=== PATIENT | male | born 1955 | race Caucasian/White ===

== ENCOUNTER 2017-02-01 17:15 | Inpatient (IN) | payer OTHER ==
--- NOTE | ~2017-02-01 | HP ---
History And Physical [place] [id number] [facility] [place]. [address] NAME: JOSE CARLOS SAAVEDRA : 59 STATUS : ADM IN PAT#: [id number] AGE: 61 ADM/REG DATE : 02/01/17 MR#: [id number] REPORT SERV DATE: 02/02/17 DICTATED BY: LUKE ELLIOTT DATE: 02/01/17 REPORT STATUS : Draft TRANSCRIBED BY: MODL DATE: 02/01/17 DATE OF ADMISSION: 02/01/2017 CARDIOLOGY ADMISSION NOTE ADMISSION DIAGNOSIS: Atrial fibrillation with tachycardia. HISTORY OF PRESENT ILLNESS: Mr. Saavedra is a 61-year-old male, known to me from clinic and last seen in the outpatient setting in 2014, who presented to his local ER today with palpitations and was found to have atrial fibrillation with tachycardia. He is transferred here for further care. He has a known history of paroxysmal atrial fibrillation of many years. He was previously diagnosed by one of my partners and he was treated with rate control. He did have a cardioversion previously and was subsequently on anticoagulation, but apparently, there was some difficulties procuring long-term anticoagulation for him and he was transitioned to a full dose aspirin. When I saw him in 05/2015, he happened to be in atrial fibrillation despite being on diltiazem 480 mg and I added metoprolol to his regimen. I subsequently placed a Holter monitor on him which noted that with this combination he had reasonable rate control with average heart rate just above 100. It seems that there was some confusion about his prescription, and then shortly thereafter, he transitioned to metoprolol alone. I have not seen him in two years partially because of temporary contract negotiations with his insurance provider. However, over that time frame, he has felt generally very well with no palpitations. However, in the past two weeks, he has been feeling poorly and reports fatigue and shortness of breath. He experienced increased palpitations this morning and went to the ER where he was noted to be in atrial fibrillation with heart rate above 150. He was given diltiazem bolus and started on infusion, and after discussion with me, he was transferred for further care. PAST MEDICAL HISTORY: 1. Atrial fibrillation paroxysmal, currently not on oral anticoagulation, but managed with Toprol 50 mg daily. 2. History of hypertension. He has no history of stroke, no history of GI bleed, or any other major bleed. MEDICATIONS: Metoprolol and full-dose aspirin. Previously, on diltiazem. ALLERGIES: DENIES DRUG ALLERGIES. FAMILY HISTORY: Noncontributory. 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 He does not smoke, use alcohol or tobacco. REVIEW OF SYSTEMS: Per HPI. Otherwise, negative. History And Physical [address] [address] NAME: JOSE CARLOS SAAVEDRA : 59 STATUS : ADM IN [facility]#: [id number] AGE: 61 ADM/REG DATE : 02/01/17 MR#: [id number] REPORT SERV DATE: 02/02/17 DICTATED BY: LUKE ELLIOTT DATE: 02/01/17 REPORT STATUS : Draft TRANSCRIBED BY: CYNTHIA DATE: 02/01/17 PHYSICAL EXAMINATION: VITALS: Heart rate approximately 120 at the time my evaluation, his diltiazem drip is currently not running, blood pressure 160/90, respiratory rate 12. GENERAL: Appears comfortable. HEENT: Sclerae anicteric; mucous membranes moist. NECK: No JVD. Thyroid not tender or enlarged CARDIOVASCULAR: The patient is tachycardic and there is a regular rhythm. No murmurs are present. PULMONARY: Lung miranda CTA. ABDOMEN: Soft, nontender, no masses EXTREMITIES: Warm, no edema. NEUROLOGIC: Grossly without deficits. LABS: Available blood work, from the transferring facility, notable for WBC 12.4, hemoglobin 18.6, hematocrit 53.0, platelets 236. Sodium of 139, potassium 3.1, chloride 97, bicarb 29, BUN 14, creatinine 1.2, glucose 155, calcium 9.9, bilirubin of 1.8. AST 30, ALT 37, troponin 0.02. Total protein 7.9, albumin 4.1. STUDIES: Chest x-ray demonstrates cardiomegaly with mild pulmonary edema. No focal airspace disease. EKG demonstrates narrow complex tachycardia, consistent with atrial fibrillation. Ventricular rate of approximately 190. Currently in telemetry, he demonstrates heart rate in the 120 to 130 range. IMPRESSIONS/RECOMMENDATIONS: 1. Paroxysmal atrial fibrillation with tachycardic response. 2. History of hypertension. 3. Possible heart failure. Abnormal chest x-ray. The patient will be rate controlled with diltiazem infusion will transition back to oral regimen with diltiazem 90 q.6 hours and metoprolol 25 q.12 hours with further titration thus needed to achieve to wean him off the diltiazem infusion and to achieve adequate heart rate response. I feel that he would be better served by being on oral an anticoagulant as opposed to aspirin. Although his only traditional risk factor is hypertension. He is at low risk of a bleed and has demonstrated significant burden of atrial fibrillation. I believe the benefits outweigh the risks and I have discussed this with him. I have recommended Eliquis 5 mg q.12 hours and he is agreeable. We will start this now. I will consider cardioversion depending on his ability to achieve adequate heart rate control and based on his initial echocardiogram which we will check tomorrow. Further recommendations pending this clinical course. ISAAC/CYNTHIA History And Physical [address] [address] NAME: SAAVEDRAJOSE CARLOS : 59 STATUS : ADM IN PAT#: [id number] AGE: 61 ADM/REG DATE : 02/01/17 MR#: [id number] REPORT SERV DATE: 02/02/17 DICTATED BY: LUKE ELLIOTT DATE: 02/01/17 REPORT STATUS : Draft TRANSCRIBED BY: CYNTHIA DATE: 02/01/17 Luke Elliott MD / [id number] CC: Luke Elliott MD
[~2017-02-01 17:15] MED LIST: TYLENOL 8 HR650 MG PO; XARELTO20 MG PO
[2017-02-01] MEDS ORDERED: ASA5GR PO (18:03)
[2017-02-01] MEDS ORDERED: TOPXL100 PO (18:04)
[2017-02-01 19:29] LABS: BASOPHILS 0.3 %; BASOPHILS ABSOLUTE 0.03 10/3/uL (0.0-0.16); EOSINOPHILS 0.3 %; EOSINOPHILS ABSOLUTE 0.03 10/3/uL (0.0-0.53); HEMOGLOBIN 16.5 g/dL (13.6-17.8); IMMATURE GRANULOCYTES 0.2 %; IMMATURE GRANULOCYTES ABSOLUTE 0.02 10/3/uL (0.0-0.11); LYMPHOCYTES 19.7 %; LYMPHOCYTES ABSOLUTE 1.91 10/3/uL (0.67-4.30); MANUAL DIFF NO %; MEAN CORPUS HGB CONC 35.1 g/dL (32.0-36.0); MONOCYTES ABSOLUTE 0.68 10/3/uL (0.21-1.20); NEUTROPHILS 72.5 %; NEUTROPHILS ABSOLUTE 7.05 10/3/uL (2.02-8.40); PLATELET COUNT 194 10/3/uL (150-400); RBC DISTRIBUTION WIDTH 13.4 % (12.0-16.0); WHITE BLOOD CELLS 9.7 10/3/uL (4.5-10.5)
[2017-02-01 19:45] LABS: A/G RATIO 0.9 (0.7-1.9); ALBUMIN 3.1 G/DL (3.5-5.0); ALKALINE PHOSPHATASE 64 U/L (45-117); CALCIUM, SERUM 8.7 MG/DL (8.5-10.4); CHLORIDE, SERUM 101 MMOL/L (96-112); CO2 (CARBON DIOXIDE) 31 MMOL/L (24-34); CREATININE 1.06 MG/DL (0.70-1.30); GFR AFRICAN AMERICAN 89 ML/MIN (>=60); GFR NON AFRICAN AMERICAN 76 ML/MIN (>=60); GLOBULIN 3.6 G/DL (2.5-4.1); POTASSIUM, SERUM 3.3 MMOL/L (3.5-5.3); SGOT(AST) 21 U/L (5-40); SGPT(ALT) 27 U/L (5-65); SODIUM, SERUM 142 MMOL/L (135-148); TOTAL PROTEIN 6.7 G/DL (6.0-8.5)
[2017-02-01 19:46] LABS: BUN (BLOOD UREA NITROGEN) 15 MG/DL (6-23); GLUCOSE, SERUM 139 MG/DL (60-99); TOTAL BILIRUBIN 1.2 MG/DL (0-1.2)
[2017-02-03 05:44] LABS: HEMATOCRIT 44.1 % (40.0-51.0); HEMOGLOBIN 15.5 g/dL (13.6-17.8)
[2017-02-03 05:58] LABS: CALCIUM, SERUM 8.6 MG/DL (8.5-10.4); CHLORIDE, SERUM 104 MMOL/L (96-112); CO2 (CARBON DIOXIDE) 28 MMOL/L (24-34); CREATININE 1.15 MG/DL (0.70-1.30); GFR AFRICAN AMERICAN 80 ML/MIN (>=60); GFR NON AFRICAN AMERICAN 69 ML/MIN (>=60); GLUCOSE, SERUM 114 MG/DL (60-99); POTASSIUM, SERUM 3.6 MMOL/L (3.5-5.3); SODIUM, SERUM 142 MMOL/L (135-148)
[2017-02-03 06:00] LABS: BUN (BLOOD UREA NITROGEN) 23 MG/DL (6-23)
[2017-02-03] MEDS ORDERED: CARDCD240 PO (09:17)
[2017-02-03] MEDS ORDERED: ELIQUIS 5 MG TAB5 MG PO (09:17)
[2017-02-03] MEDS ORDERED: CARDCD180 PO (09:34)
[2017-02-03] MEDS ORDERED: KLOR-CON M2020 MEQ PO (09:36)
[2017-02-03] MEDS ORDERED: L40 PO (09:36)
[2017-02-08] MEDS ORDERED: PRIN5 PO (13:50)
[2017-05-22] MEDS ORDERED: L40 PO (19:42)
[2017-05-22] MEDS ORDERED: PRIN10 PO (19:42)
[2017-05-22] MEDS ORDERED: KDUR20 PO (19:42)
[2017-05-22] MEDS ORDERED: TOPXL100 PO (19:43)
[2017-05-22] MEDS ORDERED: ELIQUIS 5 MG TAB5 MG PO (19:44)
[2017-05-22] MEDS ORDERED: ASA5GR PO (19:45)
[2017-05-24] MEDS ORDERED: CORDARONE PO (11:25)
== END 2017-02-03 11:48 | disposition home or self-care (01) | DRG 309 ==
LOC: 5NO 17:15
PROVIDERS: Internal Medicine Cardiovascular Disease
DX: I48.0 Paroxysmal atrial fibrillation (principal); I50.20 Unspecified systolic (congestive) heart failure; I11.0 Hypertensive heart disease with heart failure
CPT/HCPCS: 80048; 80053; 83735; 84132; 85014; 85018; 85025; 93005; A9270-GY; C8929; Q9957